=== PATIENT | female | born 1990 | race Two or more races ===

== ENCOUNTER 2022-01-27 10:55 | Emergency (ER) | payer OTHER ==
[~2022-01-27] VITALS: Ht 154.9 cm; Wt 43.1 kg
[2022-01-27] MEDS ORDERED: CRYSELLE-28 TA1 EACH (11:28)
== END 2022-01-27 14:59 | disposition home or self-care (01) ==
LOC: ER 10:55
DX: R10.2 Pelvic and perineal pain (principal); N93.8 Other specified abnormal uterine and vaginal bleeding